=== PATIENT | female | born 1975 | race Caucasian/White ===

== ENCOUNTER 2017-08-12 17:14 | Emergency (ER) | payer MEDICAID ==
[~2017-08-12] VITALS: Ht 167.6 cm; Wt 85.0 kg
[~2017-08-12 17:14] MED LIST: Docusate Sod/Senna PO; IBUP600 PO; NOVONP2 SQ; Oxycodone/Acetaminophen PO; PERC5TAB12 PO; PREN0.01 PO
[2017-08-12 17:30] VITALS: BP 137/76; PULSE 93; RESP 18; TEMP 98.7; O2SAT 99
[2017-08-12 17:51] VITALS: BP 104/64; PULSE 78; RESP 18; O2SAT 99
[2017-08-12] MEDS ORDERED: IBUP1TAB5 PO (18:00)
[2017-08-12] MEDS ORDERED: METF500T PO (18:00)
[2017-08-12] MEDS ORDERED: SODIUM CHLOR 0.9% 1000 ML INJ 1,000 ML IV ONE (18:01)
--- NOTE | 2017-08-12 18:09 | PD ---
HPI Chief Complaint: Neuro Symptoms/ Deficits Time Seen by Provider: 17:41 Travel History International Travel<30 days: No Contact w/Intl Traveler<30days: No Traveled to known affect area: No History of Present Illness HPI Is a 42-year-old woman presents emerged from complaining of right-sided headache. She reports that the headache started yesterday, fairly abruptly, while she was watching the kids and relaxing at home. Is been fairly persistent since that time. Been associated with some nausea and dizziness, as well as some severe states the chest pain shortness of breath ongoing for the past week or so, getting worse. She is not prone to headaches all personnel has a doctor for headaches in the past. This is on the setting of increased stress at home as her father's been sick with cancer. Only medical history is diabetes. She denies any change in her vision or other associated neural complaints. History Past Medical History Narrative Medical Diabetes Tetanus Vaccination: < 5 Years Influenza Vaccination: No LMP: june 2017 Social History Alcohol Use: No Tobacco Use: No Allergies-Medications (Allergen,Severity, Reaction): Coded Allergies: No Known Allergies (Unverified Adverse Reaction, Unknown, 08/12/17) Reported Meds & Prescriptions Reported Meds & Active Scripts Active Reported Ibuprofen 400 Mg Tab 400 Mg PO Q6H PRN Metformin (Metformin HCl) 500 Mg Tab 500 Mg PO BIDPC Review of Systems Except as stated in HPI: all other systems reviewed are Neg Physical Exam Narrative GENERAL: Well-appearing 42-year-old woman, no acute distress. SKIN: Focused skin assessment warm/dry. HEAD: Atraumatic. Normocephalic. EYES: Pupils equal and round. No scleral icterus. No injection or drainage. ENT: No nasal bleeding or discharge. Mucous membranes pink and moist. NECK: Trachea midline. No JVD. CARDIOVASCULAR: Regular rate and rhythm. No murmur appreciated. RESPIRATORY: No accessory muscle use. Clear to auscultation. Breath sounds equal bilaterally. GASTROINTESTINAL: Abdomen soft, non-tender, nondistended. Hepatic and splenic margins not palpable. MUSCULOSKELETAL: No obvious deformities. No clubbing. No cyanosis. No edema. NEUROLOGICAL: Awake and alert. Cranial nerves II through XII are intact. Visual claros are full to confrontation. No facial asymmetry. Strength is full and equal in the upper and lower extremities. Sensations intact to light touch and equal upper and lower extremities. Normal finger to nose. Normal heel to hassan. Normal mental status. Normal speech. PSYCHIATRIC: Appropriate mood and affect; insight and judgment normal. Data Data Last Documented VS Vital Signs Date Time Temp Pulse Resp B/P (MAP) Pulse Ox O2 Delivery O2 Flow Rate FiO2 08/12/17 17:51 82 18 100 Room Air 08/12/17 17:51 104/64 (77) 08/12/17 17:30 98.7 Orders Orders Complete Blood Count With Diff (08/12/17 18:01) Comprehensive Metabolic Panel (08/12/17 18:01) Ct Brain W/O Iv Contrast(Rout) (08/12/17 18:01) Ecg Monitoring (08/12/17 18:) Iv Access Insert/Monitor (08/12/17 18:) Oximetry (08/12/17 18:) Sodium Chloride 0.9% Flush (Ns Flush) (08/12/17 18:15) Prochlorperazine Inj (Compazine Inj) (08/12/17 18:15) Diphenhydramine Inj (Benadryl Inj) (08/12/17 18:15) Sodium Chlor 0.9% 1000 Ml Inj (Ns 1000 M (08/12/17 18:01) Electrocardiogram (08/12/17 18:01) Chest, Pa & Lat (08/12/17 18:01) MDM Medical Decision Making Medical Screen Exam Complete: Yes Emergency Medical Condition: Yes Interpretation(s) My review of EKG: Normal sinus rhythm at a rate of 79 normal axis, normal intervals, no acute ischemia. Differential Diagnosis Headache, migraine, stress, SAH, chest pain, ACS, PE, dissection, other Narrative Course Medical decision making. This is a 42-year-old woman presents to the emergency department complaining of headache, chest pain, vomiting. Headache was abrupt in onset but nothing else about it suspicious for SAH. In the setting of this chest pain, shortness of breath, ending stressful social situation. She looks well. Is no meningismus on exam negative. Will check CT head. Recommend treatment for migraines. I think this is likely benign headache. With the associated chest pain will check EKG and chest x-ray. Likely outpatient follow-up. Omero Brown MD August 12, 2017 18:09
[2017-08-12] MEDS ORDERED: PROCHLORPERAZINE INJ 10 MG/2 ML VIAL IVP ONE (18:15)
[2017-08-12] MEDS ORDERED: diphenhydrAMINE HCL 50 MG/ML VIAL IVP ONE (18:15)
[2017-08-12] MEDS ORDERED: SODIUM CHLORIDE 0.9% FLUSH 10 ML FLUSH IVF PRN (18:15)
[2017-08-12 18:39] LABS: AUTOMATED NEUTROPHIL # 11.6 TH/MM3 (1.8-7.7); BASOPHIL # 0.1 TH/MM3 (0-0.2); BASOPHIL % 0.5 % (0.0-2.0); EOSINOPHIL # 0.1 TH/MM3 (0-0.4); EOSINOPHIL % 0.8 % (0.0-4.0); HEMATOCRIT 45.4 % (35.0-46.0); HEMOGLOBIN 15.3 GM/DL (11.6-15.3); LYMPH % 14.9 % (9.0-44.0); LYMPHOCYTE # 2.2 TH/MM3 (1.0-4.8); MEAN CELL VOLUME 85.2 FL (80.0-100.0); MEAN CORPUSCULAR HEMOGLOBIN 28.8 PG (27.0-34.0); MEAN CORPUSCULAR HGB CONC 33.8 % (32.0-36.0); MEAN PLATELET VOLUME 7.5 FL (7.0-11.0); MONO % 4.1 % (0.0-8.0); MONOCYTE # 0.6 TH/MM3 (0-0.9); NEUT % 79.7 % (16.0-70.0); PLATELET COUNT 294 TH/MM3 (150-450); RED BLOOD COUNT 5.33 MIL/MM3 (4.00-5.30); RED CELL DISTRIBUTION WIDTH 12.9 % (11.6-17.2); WHITE BLOOD COUNT 14.5 TH/MM3 (4.0-11.0)
--- NOTE | 2017-08-12 18:48 | RADRPT ---
EXAM DATE: 08/12/2017 6:46 PM EDT AGE/SEX: 42 years / Female INDICATIONS: Chest pain x 1 month. CLINICAL DATA: This is the patient's initial encounter. Patient reports that signs and symptoms have been present for 1 day and indicates a pain score of 5/10. MEDICAL/SURGICAL HISTORY: None. None. COMPARISON: No prior [facility] exams available for comparison. FINDINGS: PA and lateral views of the chest demonstrate the lungs to be symmetrically aerated without evidence of mass, infiltrate or effusion. The cardiomediastinal contours are unremarkable. Osseous structures are intact. CONCLUSION: Negative for acute process. Electronically signed by: Braxton Barboza MD 08/12/2017 6:46 PM EDT
[2017-08-12 19:01] LABS: ALBUMIN 3.9 GM/DL (3.4-5.0); AST (GOT) 16 U/L (15-37); BICARBONATE 22.3 MEQ/L (21.0-32.0); BLOOD UREA NITROGEN 10 MG/DL (7-18); CHLORIDE 104 MEQ/L (98-107); CREATININE 0.62 MG/DL (0.50-1.00); GLOMERULAR FILTRATION RATE 106 ML/MIN (>89); GLUCOSE,RANDOM 169 MG/DL (74-106); SODIUM (NA) 137 MEQ/L (136-145)
[2017-08-12 19:02] LABS: ALT (GPT) 23 U/L (10-53)
[2017-08-12 19:04] LABS: ALKALINE PHOSPHATASE 96 U/L (45-117); TOTAL BILIRUBIN ADULT 0.4 MG/DL (0.2-1.0); TOTAL PROTEIN 8.4 GM/DL (6.4-8.2)
--- NOTE | 2017-08-12 19:13 | RADRPT ---
EXAM DATE: 08/12/2017 7:06 PM EDT AGE/SEX: 42 years / Female INDICATIONS: Cephalgia, Right sided face and neck pain, weakness, blurred vision. CLINICAL DATA: This is the patient's initial encounter. Patient reports that signs and symptoms have been present for 3 days and indicates a pain score of 8/10. MEDICAL/SURGICAL HISTORY: None. None. RADIATION DOSE: 56.35 CTDI (mGy) COMPARISON: No prior [facility] exams available for comparison. TECHNIQUE: CT of the head without contrast. Using automated exposure control and adjustment of the mA and/or kV according to patient size, radiation dose was kept as low as reasonably achievable to ob tain optimal diagnostic quality images. FINDINGS: Cerebrum: The ventricles are normal for age. No evidence of midline shift, mass lesion, hemorrhage or acute infarction. No extraaxial fluid collections are seen. Posterior Fossa: The cerebellum and brainstem are intact. The 4th ventricle is midline. The cerebe llopontine angle is unremarkable. Extracranial: The visualized portion of the orbits is intact. Skull: The calvaria is intact. No evidence of skull fracture. CONCLUSION: 1. Negative CT Head non contrast. Electronically signed by: Ion Rhodes MD 08/12/2017 7:12 PM EDT
--- NOTE | 2017-08-12 19:21 | PD ---
Data Data Last Documented VS Vital Signs Date Time Temp Pulse Resp B/P (MAP) Pulse Ox O2 Delivery O2 Flow Rate FiO2 08/12/17 19:27 92 20 111/65 (80) 99 Room Air 08/12/17 17:30 98.7 Orders Orders Complete Blood Count With Diff (08/12/17 18:01) Comprehensive Metabolic Panel (08/12/17 18:01) Ct Brain W/O Iv Contrast(Rout) (08/12/17 18:01) Ecg Monitoring (08/12/17 18:) Iv Access Insert/Monitor (08/12/17 18:) Oximetry (08/12/17 18:01) Sodium Chloride 0.9% Flush (Ns Flush) (08/12/17 18:15) Prochlorperazine Inj (Compazine Inj) (08/12/17 18:15) Diphenhydramine Inj (Benadryl Inj) (08/12/17 18:15) Sodium Chlor 0.9% 1000 Ml Inj (Ns 1000 M (08/12/17 18:01) Electrocardiogram (08/12/17 18:01) Chest, Pa & Lat (08/12/17 18:01) Troponin I (08/12/17 18:58) Labs Laboratory Tests Test 08/12/17 18:10 White Blood Count 14.5 TH/MM3 Red Blood Count 5.33 MIL/MM3 Hemoglobin 15.3 GM/DL Hematocrit 45.4 % Mean Corpuscular Volume 85.2 FL Mean Corpuscular Hemoglobin 28.8 PG Mean Corpuscular Hemoglobin Concent 33.8 % Red Cell Distribution Width 12.9 % Platelet Count 294 TH/MM3 Mean Platelet Volume 7.5 FL Neutrophils (%) (Auto) 79.7 % Lymphocytes (%) (Auto) 14.9 % Monocytes (%) (Auto) 4.1 % Eosinophils (%) (Auto) 0.8 % Basophils (%) (Auto) 0.5 % Neutrophils # (Auto) 11.6 TH/MM3 Lymphocytes # (Auto) 2.2 TH/MM3 Monocytes # (Auto) 0.6 TH/MM3 Eosinophils # (Auto) 0.1 TH/MM3 Basophils # (Auto) 0.1 TH/MM3 CBC Comment DIFF FINAL Differential Comment Blood Urea Nitrogen 10 MG/DL Creatinine 0.62 MG/DL Random Glucose 169 MG/DL Total Protein 8.4 GM/DL Albumin 3.9 GM/DL Calcium Level 9.0 MG/DL Alkaline Phosphatase 96 U/L Aspartate Amino Transf (AST/SGOT) 16 U/L Alanine Aminotransferase (ALT/SGPT) 23 U/L Total Bilirubin 0.4 MG/DL Sodium Level 137 MEQ/L Potassium Level 3.4 MEQ/L Chloride Level 104 MEQ/L Carbon Dioxide Level 22.3 MEQ/L Anion Gap 11 MEQ/L Estimat Glomerular Filtration Rate 106 ML/MIN Troponin I LESS THAN 0.02 NG/ML MDM Supervised Visit with DENNIS: No Narrative Course The patient was initially evaluated by the previous provider and signed out to me at the beginning of 7:00 PM pending labs, CT head, and disposition. See his note for further details. Briefly this is a 42-year-old female who complains of chest pain and headache. She has had chest pain for about a week. She began having a right-sided headache yesterday. EKG was performed and shows no signs of ischemia. Vital signs are within normal limits. Patient has been under a lot of stress as her dad has cancer. Previous provider do not believe that there was a serious underlying etiology for the patient's headaches such as SAH/meningitis or encephalitis. At the time of my assessment the patient had received Benadryl, Compazine, and a liter of normal saline, and she states that her headache has resolved. She is overall very well-appearing. CBC: WBC 14.5, hemoglobin 15.3, hematocrit 45.4, platelets 294, neutrophils 80%. CMP is remarkable for random glucose 169, otherwise unremarkable. CT head read as negative CT head. Chest x -ray read as negative for acute process. Patient has history of diabetes. Cardiac enzymes are negative. Patient was made aware of all findings. Chest pain is atypical and neither I nor the previous provider believe is ACS. Again the patient feels significantly improved after receiving medications in the emergency department with resolution of her headache. There are no focal neurologic findings. She is resting comfortably. She is stable for discharge home outpatient follow-up with her primary care physician this week. She was advised on when to return to the emergency department. She verbalizes understanding and agreement with plan. Diagnosis Primary Impression: Headache Qualified Codes: R51 - Headache Additional Impression: Atypical chest pain Referrals: Primary Care Physician 3 days Additional Instruction: Follow-up with a primary care physician this week. Return to the emergency department for worsening symptoms or any other concerns. Disposition: 01 DISCHARGE HOME Condition: Stable Dheeraj Jimenez MD August 12, 2017 19:21
[2017-08-12 19:27] VITALS: BP 111/65; PULSE 92; RESP 20; O2SAT 99
[2017-08-12 20:34] VITALS: BP 122/75
--- NOTE | 2017-08-13 14:11 | EKG ---
Date Performed: 08/12/2017 Time Performed: 18:14:30 PTAGE: 42 years EKG: Sinus rhythm LOW QRS VOLTAGE IN PRECORDIAL LEADS BORDERLINE ECG NO PREVIOUS TRACING DOCTOR: Omero Charles Interpretating Date/Time 08/13/2017 14:09:56
== END 2017-08-12 21:18 | disposition home or self-care (01) ==
LOC: NEPC 17:14
DX: R51 Headache (principal); R07.89 Other chest pain
CPT/HCPCS: 70450; 71046; 80053; 84484; 85025; 93005; 96361; 96374; 96375; 99285; J0780; J1200; J7030